=== PATIENT | male | born 1955 | race Caucasian/White ===

== ENCOUNTER 2017-12-31 22:22 | Emergency (ER) | payer SELFPAY ==
[2017-12-31 22:50] VITALS: BP 132/96
== END 2017-12-31 23:35 | disposition left against medical advice (07) ==
LOC: ED 22:22
DX: R04.2 Hemoptysis (principal); Z53.21 Procedure and treatment not carried out due to patient leaving prior to being seen by health care provider

== ENCOUNTER 2018-05-09 16:16 | Emergency (ER) | payer SELFPAY ==
[2018-05-09] MEDS ORDERED: NACL 0.9% 500 ML 500 ML IV ONE (16:24)
[2018-05-09 16:59] LABS: Basophils % (Auto) 0.4 % (0.0-1.8); Eosinophils % (Auto) 0.1 % (0.0-4.3); Hematocrit 32.5 % (35.5-45.6); Hemoglobin 10.9 gm/dl (11.8-15.2); Lymphocytes # (Auto) 1.3 K/mm3 (1.2-5.4); Lymphocytes % (Auto) 11.9 % (13.4-35.0); Mean Corpuscular HGB Conc 34 % (32-34); Mean Corpuscular Hemoglobin 29 pg (28-32); Mean Corpuscular Volume 86 fl (84-94); Monocytes # (Auto) 0.6 K/mm3 (0.0-0.8); Monocytes % (Auto) 5.8 % (0.0-7.3); Platelet Count 672 K/mm3 (140-440); Red Blood Count 3.79 M/mm3 (3.65-5.03); Red Cell Distribution Width 14.9 % (13.2-15.2)
--- NOTE | 2018-05-09 17:05 | XRay Report ---
FINAL REPORT EXAM: XR CHEST 1V AP HISTORY: possible Sepsis COMPARISON: None available. FINDINGS: Frontal view(s) of the chest obtained. Heart normal in size. Persistent dense airspace consolidation right upper lung. There may be associated cavitation. Left lung is clear is well as the right lung base. IMPRESSION: Persistent large airspace consolidation with possible associated cavitation. This is unchanged from prior study and could reflect pneumonia or neoplastic process.
[2018-05-09 17:15] LABS: Alanine Aminotransferase 11 units/L (7-56); Albumin 2.5 g/dL (3.9-5); BUN/Creatinine Ratio 7; Blood Urea Nitrogen 5 mg/dL (9-20); Calcium 8.8 mg/dL (8.4-10.2); Hemolysis Index 13
[2018-05-09] MEDS ORDERED: ATIVAN IV ONE (17:20)
[2018-05-09 17:21] LABS: INR 1.17 (0.87-1.13)
[2018-05-09 17:36] LABS: Bilirubin,Urine NEG (Negative); Blood,Urine SM (Negative); Color,Urine Yellow (Yellow); Mucus,Urine FEW /HPF; Protein,Urine <15 mg/dL mg/dL (Negative)
--- NOTE | 2018-05-09 18:12 | Cat Scan Report ---
FINAL REPORT EXAM: CT HEAD/BRAIN WO CON HISTORY: altered mental status COMPARISON: None available. TECHNIQUE: Contiguous axial images were obtained. FINDINGS: Centrally within left temporal lobe there is a 2.4 x 2.1 centimeter intra-axial lesion with prominent associated vasogenic edema. There may be a 2nd lesion more superiorly measuring 2.7 x 2.1 centimeters. Questionable lesion at the posterior superior margin of the right frontal lobe and anterior right parietal lobe measuring 0.9 x 0.8 centimeters (series 2, image 48). Probable intra-axial lesion left cerebellar hemisphere with vasogenic edema. No acute intracranial hemorrhage or midline shift. Ventricles are normal in size and configuration for the patient's age. Basal cisterns are patent. Visualized para-nasal sinuses and mastoid air cells are clear. IMPRESSION: Multifocal intra-axial lesions most concerning for metastatic disease. MRI the brain with without contrast suggested for further evaluation. No acute intracranial hemorrhage or evidence of acute transcortical infarct.
[2018-05-09] MEDS ORDERED: LEVAQUIN 750MG/150ML 750 MG/150 ML BAG IV ONE (19:18)
[2018-05-09] MEDS ORDERED: TYLENOL PO ONE (19:19)
[2018-05-09] MEDS ORDERED: TYLENOL PR ONE ×2 (19:20→19:25)
[2018-05-09] MEDS ORDERED: NACL 0.9% 1000 ML 1,000 ML IV ONE (19:20)
[2018-05-09] MEDS ORDERED: ZOSYN/NS 4.5GM/100ML 4.5 GM/100 ML VIAL IV ONE (20:00)
[2018-05-09 20:07] VITALS: BP 116/74
--- NOTE | 2018-05-09 20:40 | Emergency Department Report ---
ED Altered Mental Status HPI - General Chief Complaint: Altered Mental Status Stated Complaint: ALTERED MENTAL STATUS Time Seen by Provider: 05/09/18 16:28 Source: patient Mode of arrival: Wheelchair Limitations: No Limitations - History of Present Illness Initial Comments: Mr. Iglesias is a 62-year-old male who was initially diagnosed with lung cancer at [facility]. He was seen by our ED physician and hospitalist recently for hemoptysis. He was referred for further cancer staging. Patient presents today with altered mental status. Appears delirious and very weak. Sister's concern for infection or brain metastasis. She explained to the patient underwent bronchoscopy and fine needle aspiration at [facility] which provided the cancer diagnosis. Lesion was initially presumed to be tuberculosis. Patient is otherwise healthy without significant past medical history with exception of tobacco and alcohol abuse. According to sibling, patient drinks alcohol "all day every day". However he has not been drinking for the last several days due to illness. He has attempted to take Ativan tablets prescribed to him by our hospitalist. MD Complaint: altered mental status -: Gradual, days(s) (4) Severity: severe Consistency of Symptoms: getting worse Context: alcohol abuse - Related Data Previous Rx's Medication Instructions Recorded Last Taken Type Hydrocodone Bit/Homatrop Me-Br 10 ml PO BID PRN #300 ml 05/01/18 Unknown Rx [Hydrocodone-Homatropine Syrup] LORazepam [Ativan] 1 mg PO QHS PRN #20 tab 05/01/18 Unknown Rx oxyCODONE /ACETAMINOPHEN [Percocet 1 tab PO Q6HR PRN #25 tablet 05/01/18 Unknown Rx 5/325] Allergies Allergy/AdvReac Type Severity Reaction Status Date / Time No Known Allergies Allergy Verified 05/01/18 15:41 ED Review of Systems ROS: Stated complaint: ALTERED MENTAL STATUS Other details as noted in HPI Comment: Unobtainable due to pts medical conditions ED Past Medical Hx - Past Medical History Previous Medical History?: Yes Additional medical history: LUNG CANCER - Social History Smoking Status: Current Every Day Smoker Substance Use Type: Alcohol - Medications Home Medications: Home Medications Medication Instructions Recorded Confirmed Last Taken Type Hydrocodone Bit/Homatrop Me-Br 10 ml PO BID PRN #300 ml 05/01/18 Unknown Rx [Hydrocodone-Homatropine Syrup] LORazepam [Ativan] 1 mg PO QHS PRN #20 tab 05/01/18 Unknown Rx oxyCODONE /ACETAMINOPHEN [Percocet 1 tab PO Q6HR PRN #25 tablet 05/01/18 Unknown Rx 5/325] ED Physical Exam - General Limitations: No Limitations General appearance: lethargic, other (appears ill) - Head Head exam: Present: atraumatic, normocephalic - Eye Eye exam: Present: PERRL - ENT ENT exam: Present: mucous membranes dry - Neck Neck exam: Present: normal inspection. Absent: tenderness, meningismus - Respiratory Respiratory exam: Present: wheezes, rales, rhonchi, decreased breath sounds - Cardiovascular Cardiovascular Exam: Present: normal rhythm, tachycardia, normal heart sounds - GI/Abdominal GI/Abdominal exam: Present: soft. Absent: distended, tenderness, rebound - Extremities Exam Extremities exam: Present: normal inspection, full ROM, tenderness - Neurological Exam Neurological exam: Present: other (Not oriented to name or place or date, ) - Psychiatric Psychiatric exam: Present: flat affect ED Course Vital Signs 05/09/18 05/09/18 05/09/18 16:20 16:34 16:45 Temperature 99.9 F H Pulse Rate 135 H 131 H Respiratory 20 18 Rate Blood Pressure 106/70 Blood Pressure [Left] O2 Sat by Pulse 92 95 100 Oximetry 05/09/18 05/09/18 05/09/18 16:46 17:00 17:16 Temperature Pulse Rate 125 H 119 H 118 H Respiratory 19 19 17 Rate Blood Pressure 106/71 106/71 106/71 Blood Pressure [Left] O2 Sat by Pulse 99 99 99 Oximetry 05/09/18 05/09/18 05/09/18 17:30 17:45 18:02 Temperature Pulse Rate 113 H 113 H 123 H Respiratory 29 H 22 20 Rate Blood Pressure 106/71 131/68 131/68 Blood Pressure [Left] O2 Sat by Pulse 99 100 87 Oximetry 05/09/18 05/09/18 05/09/18 18:15 18:30 18:45 Temperature Pulse Rate 118 H 106 H 110 H Respiratory 33 H 34 H 33 H Rate Blood Pressure 110/69 99/61 102/64 Blood Pressure [Left] O2 Sat by Pulse 85 100 100 Oximetry 05/09/18 05/09/18 05/09/18 19:00 19:14 19:15 Temperature 104.4 F H Pulse Rate 107 H 108 H 110 H Respiratory 23 16 32 H Rate Blood Pressure 102/64 96/59 Blood Pressure 100/60 [Left] O2 Sat by Pulse 100 100 Oximetry 05/09/18 20:01 Temperature Pulse Rate 157 H Respiratory 39 H Rate Blood Pressure 116/74 Blood Pressure [Left] O2 Sat by Pulse Oximetry - Lab Data Result diagrams: 05/09/18 16:44 05/09/18 16:44 Lab Results 05/09/18 05/09/18 05/09/18 Range/Units 16:44 16:44 16:44 WBC 10.5 (4.5-11.0) K/mm3 RBC 3.79 (3.65-5.03) M/mm3 Hgb 10.9 L (11.8-15.2) gm/dl Hct 32.5 L (35.5-45.6) % MCV 86 (84-94) fl MCH 29 (28-32) pg MCHC 34 (32-34) % RDW 14.9 (13.2-15.2) % Plt Count 672 H (140-440) K/mm3 Lymph % (Auto) 11.9 L (13.4-35.0) % Todd % (Auto) 5.8 (0.0-7.3) % Eos % (Auto) 0.1 (0.0-4.3) % Baso % (Auto) 0.4 (0.0-1.8) % Lymph # 1.3 (1.2-5.4) K/mm3 Todd # 0.6 (0.0-0.8) K/mm3 Eos # 0.0 (0.0-0.4) K/mm3 Baso # 0.0 (0.0-0.1) K/mm3 Seg Neutrophils % 81.8 H (40.0-70.0) % Seg Neutrophils # 8.6 H (1.8-7.7) K/mm3 PT 15.4 H (12.2-14.9) Sec. INR 1.17 H (0.87-1.13) VBG pH (7.320-7.420) Sodium 139 (137-145) mmol/L Potassium 3.9 (3.6-5.0) mmol/L Chloride 96.7 L (98-107) mmol/L Carbon Dioxide 27 (22-30) mmol/L Anion Gap 19 mmol/L BUN 5 L (9-20) mg/dL Creatinine 0.7 L (0.8-1.5) mg/dL Estimated GFR > 60 ml/min BUN/Creatinine Ratio 7 % Glucose 132 H (75-100) mg/dL Lactic Acid (0.7-2.0) mmol/L Calcium 8.8 (8.4-10.2) mg/dL Total Bilirubin 0.40 (0.1-1.2) mg/dL AST 24 (5-40) units/L ALT 11 (7-56) units/L Alkaline Phosphatase 68 (35-129) units/L Ammonia (25-60) umol/L Total Protein 7.6 (6.3-8.2) g/dL Albumin 2.5 L (3.9-5) g/dL Albumin/Globulin Ratio 0.5 % Urine Color (Yellow) Urine Turbidity (Clear) Urine pH (5.0-7.0) Ur Specific [place] (1.003-1.030) Urine Protein (Negative) mg/dL Urine Glucose (UA) (Negative) mg/dL Urine Ketones (Negative) mg/dL Urine Blood (Negative) Urine Nitrite (Negative) Urine Bilirubin (Negative) Urine Urobilinogen (<2.0) mg/dL Ur Leukocyte Esterase (Negative) Urine WBC (Auto) (0.0-6.0) /HPF Urine RBC (Auto) (0.0-6.0) /HPF U Epithel Cells (Auto) (0-13.0) /HPF Urine Mucus /HPF Plasma/Serum Alcohol (0-0.07) % 05/09/18 05/09/18 05/09/18 Range/Units 16:44 16:44 17:23 WBC (4.5-11.0) K/mm3 RBC (3.65-5.03) M/mm3 Hgb (11.8-15.2) gm/dl Hct (35.5-45.6) % MCV (84-94) fl MCH (28-32) pg MCHC (32-34) % RDW (13.2-15.2) % Plt Count (140-440) K/mm3 Lymph % (Auto) (13.4-35.0) % Todd % (Auto) (0.0-7.3) % Eos % (Auto) (0.0-4.3) % Baso % (Auto) (0.0-1.8) % Lymph # (1.2-5.4) K/mm3 Todd # (0.0-0.8) K/mm3 Eos # (0.0-0.4) K/mm3 Baso # (0.0-0.1) K/mm3 Seg Neutrophils % (40.0-70.0) % Seg Neutrophils # (1.8-7.7) K/mm3 PT (12.2-14.9) Sec. INR (0.87-1.13) VBG pH 7.447 H (7.320-7.420) Sodium (137-145) mmol/L Potassium (3.6-5.0) mmol/L Chloride (98-107) mmol/L Carbon Dioxide (22-30) mmol/L Anion Gap mmol/L BUN (9-20) mg/dL Creatinine (0.8-1.5) mg/dL Estimated GFR ml/min BUN/Creatinine Ratio % Glucose (75-100) mg/dL Lactic Acid 1.80 (0.7-2.0) mmol/L Calcium (8.4-10.2) mg/dL Total Bilirubin (0.1-1.2) mg/dL AST (5-40) units/L ALT (7-56) units/L Alkaline Phosphatase (35-129) units/L Ammonia (25-60) umol/L Total Protein (6.3-8.2) g/dL Albumin (3.9-5) g/dL Albumin/Globulin Ratio % Urine Color Yellow (Yellow) Urine Turbidity Slightly-cloudy (Clear) Urine pH 5.0 (5.0-7.0) Ur Specific [place] 1.014 (1.003-1.030) Urine Protein <15 mg/dl (Negative) mg/dL Urine Glucose (UA) Neg (Negative) mg/dL Urine Ketones Neg (Negative) mg/dL Urine Blood Sm (Negative) Urine Nitrite Neg (Negative) Urine Bilirubin Neg (Negative) Urine Urobilinogen 4.0 (<2.0) mg/dL Ur Leukocyte Esterase Neg (Negative) Urine WBC (Auto) 6.0 (0.0-6.0) /HPF Urine RBC (Auto) 3.0 (0.0-6.0) /HPF U Epithel Cells (Auto) < 1.0 (0-13.0) /HPF Urine Mucus Few /HPF Plasma/Serum Alcohol (0-0.07) % 05/09/18 05/09/18 Range/Units 17:29 17:29 WBC (4.5-11.0) K/mm3 RBC (3.65-5.03) M/mm3 Hgb (11.8-15.2) gm/dl Hct (35.5-45.6) % MCV (84-94) fl MCH (28-32) pg MCHC (32-34) % RDW (13.2-15.2) % Plt Count (140-440) K/mm3 Lymph % (Auto) (13.4-35.0) % Todd % (Auto) (0.0-7.3) % Eos % (Auto) (0.0-4.3) % Baso % (Auto) (0.0-1.8) % Lymph # (1.2-5.4) K/mm3 Todd # (0.0-0.8) K/mm3 Eos # (0.0-0.4) K/mm3 Baso # (0.0-0.1) K/mm3 Seg Neutrophils % (40.0-70.0) % Seg Neutrophils # (1.8-7.7) K/mm3 PT (12.2-14.9) Sec. INR (0.87-1.13) VBG pH (7.320-7.420) Sodium (137-145) mmol/L Potassium (3.6-5.0) mmol/L Chloride (98-107) mmol/L Carbon Dioxide (22-30) mmol/L Anion Gap mmol/L BUN (9-20) mg/dL Creatinine (0.8-1.5) mg/dL Estimated GFR ml/min BUN/Creatinine Ratio % Glucose (75-100) mg/dL Lactic Acid (0.7-2.0) mmol/L Calcium (8.4-10.2) mg/dL Total Bilirubin (0.1-1.2) mg/dL AST (5-40) units/L ALT (7-56) units/L Alkaline Phosphatase (35-129) units/L Ammonia 16.0 L (25-60) umol/L Total Protein (6.3-8.2) g/dL Albumin (3.9-5) g/dL Albumin/Globulin Ratio % Urine Color (Yellow) Urine Turbidity (Clear) Urine pH (5.0-7.0) Ur Specific [place] (1.003-1.030) Urine Protein (Negative) mg/dL Urine Glucose (UA) (Negative) mg/dL Urine Ketones (Negative) mg/dL Urine Blood (Negative) Urine Nitrite (Negative) Urine Bilirubin (Negative) Urine Urobilinogen (<2.0) mg/dL Ur Leukocyte Esterase (Negative) Urine WBC (Auto) (0.0-6.0) /HPF Urine RBC (Auto) (0.0-6.0) /HPF U Epithel Cells (Auto) (0-13.0) /HPF Urine Mucus /HPF Plasma/Serum Alcohol < 0.01 (0-0.07) % - Radiology Data Radiology results: report reviewed X-ray: Right upper lobe consolidation CT head: Numerous metastatic lesions - Medical Decision Making Mr. Iglesias presents with altered mental status. Differential diagnosis includes brain metastasis versus alcohol withdrawal versus acute delirium due to infection. Unfortunately I feel the patient likely has all 3 entities at this time. Patient required oncology and neurosurgery services. Without NSG, I felt patient needed emergent tranfer. I spoke with Dr. Gallo hospitalist at [facility] who declined patient due to lack of bed capacity. I spoke with Dr. Mendieta at [facility] who accepted patient for further care. After acceptance, I was informed that patient had high fever and worsening tachycardia. Patient then had worsening oxygen saturation requiring suctioning. Patient did have consolidation concern for postobstructive pneumonia on my review of the chest x- ray. I ordered antipyretic, respiratory therapy evaluation. Also ordered antibiotics and IV fluid therapy. Unfortunately patient will likely have a poor outcome. I did explain to Dr. Mendieta that patient ultimately will need palliative care. Critical Care Time: Yes Critical care time in (mins) excluding proc time.: 40 Critical care attestation.: If time is entered above; I have spent that time in minutes in the direct care of this critically ill patient, excluding procedure time. 40 minutes of critical care time excluding procedures were used in the care of the patient. Patient required multiple assessments and interventions. I reviewed the electronic medical record. I spoke with consultants involved in the care of the patient. ED Disposition Clinical Impression: Brain metastases, Lung cancer, Postobstructive pneumonia Disposition: DC/TX-[id number] ANOTHER TYPE HLTHCARE Is pt being admited?: No Does the pt Need Aspirin: No Condition: Stable
== END 2018-05-09 21:30 | disposition other institution (70) ==
LOC: ED 16:16
DX: C79.31 Secondary malignant neoplasm of brain (principal); Z85.118 Personal history of other malignant neoplasm of bronchus and lung; J18.8 Other pneumonia, unspecified organism; F17.200 Nicotine dependence, unspecified, uncomplicated
CPT/HCPCS: 36415; 70450; 71045; 80053; 81001; 82140; 82805; 85025; 85610; 87040; 87086; 96361; 96365; 96367; 96375; 99291; G0480; J1956; J2060; J2543; J7030; J7040; 80320